=== PATIENT | male | born 1935 | race Caucasian/White ===

== ENCOUNTER 2016-11-03 12:38 | Day surgery (SDC) | payer MEDICARE, OTHER ==
[2016-10-28 12:11] LABS: BASOPHILS 0.9 %; BASOPHILS ABSOLUTE 0.04 10/3/uL (0.0-0.16); EOSINOPHILS 2.7 %; EOSINOPHILS ABSOLUTE 0.12 10/3/uL (0.0-0.53); HEMOGLOBIN 14.6 g/dL (13.6-17.8); IMMATURE GRANULOCYTES 0.2 %; IMMATURE GRANULOCYTES ABSOLUTE 0.01 10/3/uL (0.0-0.11); LYMPHOCYTES 20.4 %; LYMPHOCYTES ABSOLUTE 0.92 10/3/uL (0.67-4.30); MANUAL DIFF NO %; MEAN CORPUSCULAR HEMOGLOB 30.9 pg (26.0-34.0); MEAN CORPUSCULAR VOLUME 90.9 fL (80-100); MEAN PLATELET VOLUME 9.1 fL (9.2-13.0); MONOCYTES 11.1 %; NEUTROPHILS 64.7 %; NEUTROPHILS ABSOLUTE 2.92 10/3/uL (2.02-8.40); PLATELET COUNT 205 10/3/uL (150-400); RBC DISTRIBUTION WIDTH 13.3 % (12.0-16.0); RED CELL COUNT 4.73 10/6/uL (4.7-6.1); WHITE BLOOD CELLS 4.5 10/3/uL (4.5-10.5)
[2016-10-28 12:21] LABS: BUN (BLOOD UREA NITROGEN) 14 MG/DL (6-23); CALCIUM, SERUM 9.3 MG/DL (8.5-10.4); CHLORIDE, SERUM 107 MMOL/L (96-112); CO2 (CARBON DIOXIDE) 33 MMOL/L (24-34); GFR AFRICAN AMERICAN 92 ML/MIN (>=60); GFR NON AFRICAN AMERICAN 79 ML/MIN (>=60); GLUCOSE, SERUM 83 MG/DL (60-99); POTASSIUM, SERUM 4.4 MMOL/L (3.5-5.3); SODIUM, SERUM 142 MMOL/L (135-148)
[~2016-11-03 12:38] MED LIST: ACCU10 PO; ASAB PO; BRILINTA90 MG PO; FLOMAX4 PO; IMDUR30 PO; LIPITOR10 PO; LIPITOR20 PO; LOP25 PO; MUCUS RELIEF OR; NORCO1 TA1 PO; NORV5 PO; PREV30 PO; PROSCAR5 PO; V5 PO
[2016-11-11] MEDS ORDERED: PROTONIX PO (11:21)
[2016-11-11] MEDS ORDERED: PLAVIX PO (11:23)
== END 2016-11-03 23:59 | disposition home or self-care (01) ==
LOC: SDC 12:38
PROVIDERS: Urology
DX: Z53.8 Procedure and treatment not carried out for other reasons (principal)
CPT/HCPCS: 71020; 80048; 85025; 93005; J2405; J2710; J3010

== ENCOUNTER 2016-11-15 12:44 | Day surgery (SDC) | payer MEDICARE, OTHER ==
[2016-11-10 10:16] LABS: BASOPHILS 0.7 %; BASOPHILS ABSOLUTE 0.03 10/3/uL (0.0-0.16); EOSINOPHILS 4.3 %; EOSINOPHILS ABSOLUTE 0.18 10/3/uL (0.0-0.53); HEMATOCRIT 42.3 % (40.0-51.0); HEMOGLOBIN 14.5 g/dL (13.6-17.8); LYMPHOCYTES 22.3 %; LYMPHOCYTES ABSOLUTE 0.93 10/3/uL (0.67-4.30); MANUAL DIFF NO %; MEAN CORPUS HGB CONC 34.3 g/dL (32.0-36.0); MEAN CORPUSCULAR HEMOGLOB 31.3 pg (26.0-34.0); MEAN CORPUSCULAR VOLUME 91.4 fL (80-100); MEAN PLATELET VOLUME 8.8 fL (9.2-13.0); MONOCYTES 10.6 %; MONOCYTES ABSOLUTE 0.44 10/3/uL (0.21-1.20); NEUTROPHILS 62.1 %; NEUTROPHILS ABSOLUTE 2.59 10/3/uL (2.02-8.40); PLATELET COUNT 195 10/3/uL (150-400); RBC DISTRIBUTION WIDTH 13.1 % (12.0-16.0); RED CELL COUNT 4.63 10/6/uL (4.7-6.1); WHITE BLOOD CELLS 4.2 10/3/uL (4.5-10.5)
[2016-11-10 10:28] LABS: BUN (BLOOD UREA NITROGEN) 15 MG/DL (6-23); CALCIUM, SERUM 8.7 MG/DL (8.5-10.4); CHLORIDE, SERUM 108 MMOL/L (96-112); CO2 (CARBON DIOXIDE) 32 MMOL/L (24-34); CREATININE 0.97 MG/DL (0.70-1.30); GFR AFRICAN AMERICAN 84 ML/MIN (>=60); GFR NON AFRICAN AMERICAN 72 ML/MIN (>=60); GLUCOSE, SERUM 89 MG/DL (60-99); SODIUM, SERUM 144 MMOL/L (135-148)
--- NOTE | ~2016-11-15 | OP ---
Record Of Operation [facility] [address] [place]. [address] NAME: TEDDY WOOD : 33 STATUS : REG [facility]#: [id number] AGE: 81 ADM/REG DATE : 11/15/16 MR#: [id number] REPORT SERV DATE: 11/15/16 DICTATED BY: ANG CALDERON III DATE: 11/15/16 REPORT STATUS : Draft TRANSCRIBED BY: MODL DATE: 11/15/16 DATE OF PROCEDURE: 11/15/2016 PROCEDURE: Cystoscopy, GreenLight laser prostatectomy. PREOPERATIVE DIAGNOSIS: Retention. POSTOPERATIVE DIAGNOSIS: Retention. ANESTHESIA: General. DESCRIPTION OF PROCEDURE: Following induction of adequate general anesthesia, the patient was placed in the dorsal lithotomy position, prepped and draped in a usual fashion. Urethra was examined and noted to be normal. The prostate basically consisted of lateral lobes only with a high bladder neck. The bladder was entered. It was heavily trabeculated with cellules. There was expected catheter reaction on the base of the bladder. No tumors or stones were noted. The position of the orifices was identified. The laser was inserted and at 80 riggins, the bladder neck was taken down the bladder neck fibers. Grooves were cut on each side in a 4 o'clock right lateral lobe was vaporized down to the 11 o'clock position followed by the left lateral lobe. Tissue on the floor was resected and I made a conscious attempt in not to undermine the bladder neck for catheter purposes. Bleeding was minimal. After vaporization of all obstructing tissue, the orifices were identified and were intact. The verumontanum was intact as was the sphincter. A 22-Czech catheter was placed in the bladder and left on a slow drip. He tolerated the procedure well. OB/MODL Ang Calderon III, M.D. / [id number] CC: Aubrie Mendez III, M.D.
[~2016-11-15 12:44] MED LIST changes: +PLAVIX PO; +PROTONIX PO
== END 2016-11-16 14:12 | disposition home or self-care (01) ==
LOC: SDC 12:44
PROVIDERS: Urology
PROC: 0VB08ZZ Excision of Prostate, Via Natural or Artificial Opening Endoscopic (ICD-10-PCS; principal; 2016-11-15 14:30)
DX: R33.9 Retention of urine, unspecified (principal); I10 Essential (primary) hypertension; I25.10 Atherosclerotic heart disease of native coronary artery without angina pectoris; E78.5 Hyperlipidemia, unspecified; G47.33 Obstructive sleep apnea (adult) (pediatric); K21.9 Gastro-esophageal reflux disease without esophagitis; I49.5 Sick sinus syndrome; Z79.82 Long term (current) use of aspirin; Z79.899 Other long term (current) drug therapy; Z79.891 Long term (current) use of opiate analgesic; Z95.0 Presence of cardiac pacemaker; Z98.890 Other specified postprocedural states
CPT/HCPCS: 80048; 85025; A9270-GY; J2405; J2710; J3010

== ENCOUNTER 2016-11-17 23:56 | Emergency (ER) | payer MEDICARE, OTHER ==
[2016-11-17 22:57] LABS: BASOPHILS 0.1 %; BASOPHILS ABSOLUTE 0.01 10/3/uL (0.0-0.16); EOSINOPHILS 0.6 %; EOSINOPHILS ABSOLUTE 0.04 10/3/uL (0.0-0.53); ER CBC TAT 0 Hrs 07 Mins; HEMATOCRIT 36.1 % (40.0-51.0); HEMOGLOBIN 12.3 g/dL (13.6-17.8); IMMATURE GRANULOCYTES 0.1 %; IMMATURE GRANULOCYTES ABSOLUTE 0.01 10/3/uL (0.0-0.11); LYMPHOCYTES 8.3 %; LYMPHOCYTES ABSOLUTE 0.59 10/3/uL (0.67-4.30); MANUAL DIFF NO %; MEAN CORPUS HGB CONC 34.1 g/dL (32.0-36.0); MEAN CORPUSCULAR HEMOGLOB 30.9 pg (26.0-34.0); MEAN CORPUSCULAR VOLUME 90.7 fL (80-100); MONOCYTES 5.1 %; MONOCYTES ABSOLUTE 0.36 10/3/uL (0.21-1.20); NEUTROPHILS 85.8 %; PLATELET COUNT 155 10/3/uL (150-400); RBC DISTRIBUTION WIDTH 13.3 % (12.0-16.0); RED CELL COUNT 3.98 10/6/uL (4.7-6.1); WHITE BLOOD CELLS 7.1 10/3/uL (4.5-10.5)
[2016-11-17 23:03] LABS: INTERNATIONAL NORMAL RATI 1.2 UNITS (-); PARTIAL THROMBO TIME 30.1 SEC (22.5-37.2); PROTIME (NOT ORD) 14.9 SEC (12.0-14.5)
[2016-11-17 23:15] LABS: BUN (BLOOD UREA NITROGEN) 14 MG/DL (6-23); CALCIUM, SERUM 7.8 MG/DL (8.5-10.4); CHLORIDE, SERUM 107 MMOL/L (96-112); CO2 (CARBON DIOXIDE) 28 MMOL/L (24-34); CREATININE 0.81 MG/DL (0.70-1.30); GFR AFRICAN AMERICAN 96 ML/MIN (>=60); GFR NON AFRICAN AMERICAN 83 ML/MIN (>=60); GLUCOSE, SERUM 109 MG/DL (60-99); POTASSIUM, SERUM 3.3 MMOL/L (3.5-5.3); SODIUM, SERUM 141 MMOL/L (135-148)
[2016-11-17 23:16] LABS: CHEST PAIN PROFILE TAT 0 Hrs 26 Mins; TROPONIN I 0.05 NG/ML (<0.05)
[2016-11-18 00:28] LABS: CK-MB 3.4 NG/ML; CPK 110 U/L (0-200)
== END 2016-11-18 01:27 | disposition home or self-care (01) ==
LOC: ER 23:56
PROVIDERS: Emergency Medicine
DX: I25.10 Atherosclerotic heart disease of native coronary artery without angina pectoris (principal); I10 Essential (primary) hypertension; Z95.5 Presence of coronary angioplasty implant and graft; K21.9 Gastro-esophageal reflux disease without esophagitis; Z95.0 Presence of cardiac pacemaker; Z79.899 Other long term (current) drug therapy; Z79.82 Long term (current) use of aspirin
CPT/HCPCS: 71010; 80048; 82550; 82553; 83735; 83880; 84484; 85025; 85610; 85730; 93005; 99285; A9270-GY